=== PATIENT | male | born 1995 | race Caucasian/White ===

== ENCOUNTER 2018-11-25 03:36 | Emergency (ER) | payer MEDICAID, OTHER ==
[2018-11-25] MEDS ORDERED: ACETAMINOPHEN 500 MG 500 MG TAB ONE (04:20)
[2018-11-25] MEDS ORDERED: ONDANSETRON HCL 4 MG/2 ML SOL IV ONE (04:24)
[2018-11-25] MEDS ORDERED: ACETAMINOPHEN 500 MG 500 MG TAB PO ONE (04:26)
[2018-11-25] MEDS ORDERED: SODIUM CHLORIDE 0.9% 1000ML 1,000 ML IV SCH ×2 (04:30→08:30)
[2018-11-25] MEDS ORDERED: ONDANSETRON HCL 4 MG/2 ML SOL ONE (04:33)
[2018-11-25] MEDS ORDERED: PIPERACILLIN/TAZOBACT 3.375 GM PDS IV ONE ×2 (04:33→10:16)
[2018-11-25] MEDS ORDERED: OSELTAMIVIR PHOSPHATE 75 MG CAP PO ONE ×2 (04:37→05:15)
[2018-11-25] MEDS: PIPERACILLIN/TAZOBACT 3.375 GM 3.375 GM in SODIUM CHLORIDE 0.9% 100 ML 100 ML IV SCH ×2 (04:55→11:02)
[2018-11-25 05:04] LABS: HEMATOCRIT 35 % (39-53); HEMOGLOBIN 11.2 gm/dl (13.5-17.7); MEAN CORPUSCULAR HGB CONC 31.9 gm/dl (32.0-36.0); MEAN CORPUSCULAR VOLUME 88 fL (80-100)
[2018-11-25 05:08] LABS: ALBUMIN 3.6 gm/dl (3.4-5.0); BILIRUBIN,TOTAL 0.5 mg/dl (0.2-1.0); CALCIUM 8.2 mg/dl (8.5-10.1); CARBON DIOXIDE 20.3 mEq/L (21-32); CREATININE 1.63 mg/dl (0.80-1.30); CRP INFLAMMATORY 2.63 mg/dl (0.00-0.33); TOTAL PROTEIN 7.4 gm/dl (6.4-8.2)
[2018-11-25 05:13] LABS: POTASSIUM 6.4 mMol/L (3.5-5.1)
[2018-11-25 05:23] LABS: APPEARANCE,URINE Clear; BILIRUBIN,URINE NEGATIVE (NEGATIVE); COLOR,URINE Yellow; GLUCOSE, URINE (UA) NEGATIVE (NEGATIVE); KETONES,URINE NEGATIVE (NEGATIVE); LEUKOCYTE ESTERASE ,URINE NEGATIVE (NEGATIVE); NITRATE,URINE NEGATIVE (NEGATIVE); OCCULT BLOOD,URINE NEGATIVE (NEG-TRACE); UROBILINOGEN,URINE 0.2 (0.2-1.0 EU)
[2018-11-25 05:28] LABS: INFLUENZA A NEGATIVE (NEGATIVE); INFLUENZA B NEGATIVE (NEGATIVE)
[2018-11-25 05:33] LABS: BACTERIA 1+ (< 1+); CRYSTALS NEGATIVE (0-3 AVE/HPF); RBC,URINE 0-2 (0-3AV/HPF); WBC,URINE 0-2 (0-5AV/HPF)
[2018-11-25] MEDS ORDERED: SODIUM POLYSTYRENE SULFONATE 15 GM/60 ML SUS ONE (05:46)
[2018-11-25 05:48] LABS: BAND NEUTROPHILS % (MANUAL) 16 %; LYMPHOCYTES % (MANUAL) 37 % (10-50); MONOCYTES % (MANUAL) 2 % (0-12); NEUTROPHILS % (MANUAL) 43 % (37-80)
[2018-11-25 05:49] LABS: BASOPHILS % (MANUAL) 0 % (0-3); EOSINOPHILS % (MANUAL) 2 % (0-9); POIKILOCYTOSIS SLIGHT AMT
[2018-11-25 05:50] LABS: BURR CELLS PRESENT; SEDIMENTATION RATE 20 mm/hr (0-15); SPHEROCYTES PRESENT
[2018-11-25] MEDS ORDERED: FUROSEMIDE 100 MG SOL IV ONE ×2 (06:00→06:32)
[2018-11-25] MEDS ORDERED: INSULIN HUMAN REGULAR 100 U/ML SOL IV PRN (06:28)
[2018-11-25] MEDS ORDERED: ALBUTEROL NEB SOL 2.5MG/3ML 1 VIAL SOL NEB PRN (06:28)
[2018-11-25] MEDS ORDERED: DEXTROSE/SALINE 0.45% 1,000 ML IV SCH (06:30)
[2018-11-25] MEDS ORDERED: DEXTROSE 50% 1 VIAL SOL IV ONE ×2 (06:31→06:37)
[2018-11-25] MEDS ORDERED: FUROSEMIDE 40 MG SOL ONE (06:37)
[2018-11-25] MEDS ORDERED: ALBUTEROL NEB SOL 2.5MG/3ML 1 VIAL SOL ONE (06:37)
[2018-11-25] MEDS ORDERED: INSULIN HUMAN REGULAR 100 U/ML SOL ONE (06:38)
[2018-11-25] MEDS ORDERED: SODIUM CHLORIDE 0.9% 500 ML 500 ML IV ONE ×2 (07:31→07:45)
[2018-11-25] MEDS ORDERED: LORAZEPAM 2 MG/ML 10ML MDV 2 MG/ML VIAL IV PRN (07:46)
[2018-11-25] MEDS ORDERED: LORAZEPAM 2 MG/ML SOL ONE (07:49)
[2018-11-25 08:13] LABS: CARBON DIOXIDE 16.5 mEq/L (21-32); POTASSIUM 3.7 mMol/L (3.5-5.1)
[2018-11-25 08:14] LABS: CREATININE 2.03 mg/dl (0.80-1.30)
[2018-11-25] MEDS ORDERED: VANCOMYCIN HCL 500 MG PDS 1,000 MG in SODIUM CHLORIDE 0.9% 100 ML 100 ML IV SCH (08:45)
[2018-11-25] MEDS ORDERED: VANCOMYCIN HYDROCHLORIDE 500 MG PDS IV ONE (08:48)
[2018-11-25] MEDS ORDERED: SODIUM POLYSTYRENE SULFONATE 15 GM/60 ML SUS PO SCH (09:00)
[2018-11-25 09:13] LABS: ABG PH 7.29 (7.35-7.45)
[2018-11-25] MEDS ORDERED: SODIUM CHLORIDE 0.9% 1000ML 1,000 ML IV ONE ×2 (09:16→09:25)
[2018-11-25 09:34] LABS: CALCIUM 8.1 mg/dl (8.5-10.1); CREATININE 1.93 mg/dl (0.80-1.30); MAGNESIUM 1.8 mg/dl (1.8-2.4); POTASSIUM 3.7 mMol/L (3.5-5.1)
[2018-11-25 09:42] VITALS: TEMP 98.2
[2018-11-25 10:53] LABS: CALCIUM 6.9 mg/dl (8.5-10.1); CREATININE 1.72 mg/dl (0.80-1.30); POTASSIUM 3.9 mMol/L (3.5-5.1)
[2018-11-25 10:54] LABS: CARBON DIOXIDE 15.6 mEq/L (21-32)
[2018-11-25 11:10] VITALS: BP 116/78; PULSE 136; RESP 22; O2SAT 98
[2018-11-25] MEDS ORDERED: NOREPINEPHRINE BITARTRATE 4 MG/4 ML SOL IV ONE (11:13)
[2018-11-25] MEDS ORDERED: NOREPINEPHRINE 4 MG/4 ML 4 MG in DEXTROSE 500 ML 500 ML IV SCH (11:15)
== END 2018-11-25 11:24 | disposition short-term general hospital (02) | DRG 864 ==
LOC: ED 03:36
DX: R50.9 Fever, unspecified (principal); Z94.4 Liver transplant status; R11.2 Nausea with vomiting, unspecified; E78.5 Hyperlipidemia, unspecified; D72.829 Elevated white blood cell count, unspecified
CPT/HCPCS: 36415; 36600; 71046; 80048; 80053; 81001; 82803; 83735; 85007; 85027; 85651; 87040; 87430; 87804; 93005; 96365; 96366; 96374; 96375; 99070; 99284; 99291; J1815; J1940; J2060; J2405; J2543; J3370; J7613; A9270-GY; J3490